=== PATIENT | female | born 1930 | race Caucasian/White ===

== ENCOUNTER 2018-10-07 07:23 | Inpatient (IN) | payer MEDICARE, OTHER ==
[2018-10-07] VITALS (11 sets, daily range): BP systolic 89–108; BP diastolic 46–84
[~2018-10-07] VITALS: Ht 162.6 cm; Wt 63.6 kg
[2018-10-07 08:23] LABS: BASOPHILS % (AUTO) 0.3 % (0-1); EOSINOPHILS # (AUTO) 0.2 X10'3 (0-0.9); EOSINOPHILS % (AUTO) 1.4 % (0-6); HEMATOCRIT 38.7 % (35.0-45.0); HEMOGLOBIN 12.7 g/dl (12.0-16.0); LYMPHOCYTES # (AUTO) 1.6 X10'3 (1.1-4.8); LYMPHOCYTES % (AUTO) 12.4 % (21-51); MEAN CORPUSCULAR HEMOGLOBIN 29.6 PG (27.0-31.0); MEAN CORPUSCULAR HGB CONC 32.9 % (33.0-36.5); MEAN PLATELET VOLUME 10.5 FL (7.4-10.4); MONOCYTES # (AUTO) 1.4 X10'3 (0-0.9); MONOCYTES % (AUTO) 11.3 % (2-12); NEUTROPHILS # (AUTO) 9.5 X10'3 (1.8-7.7); NEUTROPHILS % (AUTO) 74.6 % (42-75); PLATELET COUNT 216 X10'3 (140-440); RED CELL DISTRIBUTION WIDTH 17.7 % (11.5-14.5); WHITE BLOOD COUNT 12.8 X10'3 (4.5-11.0)
[2018-10-07 08:34] LABS: ANISOCYTOSIS 2+; BURR CELLS 1+; LARGE PLATELETS FEW; PLATELET ESTIMATE NORMAL; TARGET CELLS FEW
[2018-10-07] MEDS ORDERED: normal saline 1000ML IV soln IVB ONE ×2 (08:35→10:05)
[2018-10-07 08:38] LABS: ALANINE AMINOTRANSFERASE 18 U/L (12-78); ALBUMIN 3.2 G/DL (3.4-5.0); ALBUMIN/GLOBULIN RATIO 0.8 (1.1-1.5); ALKALINE PHOSPHATASE 46 IU/L (46-116); ANION GAP 17 (8-16); ASPARTATE AMINO TRANSFERASE 25 U/L (10-37); BILIRUBIN,TOTAL 0.8 MG/DL (0.1-1.0); BLOOD UREA NITROGEN 37 MG/DL (7-18); BUN/CREATININE RATIO 24.8 (6.6-38.0); CALCIUM 8.5 MG/DL (8.5-10.1); CHLORIDE 102 MMOL/L (99-107); CREATININE 1.49 MG/DL (0.40-0.90); GLUCOSE 116 MG/DL (70-104); MAGNESIUM 1.7 MG/DL (1.5-2.4); POTASSIUM 3.8 MMOL/L (3.5-5.1); SODIUM 135 MMOL/L (135-145); TOTAL CARBON DIOXIDE 16.4 MMOL/L (24-32); eGFR 33 ML/MIN
[2018-10-07 08:39] LABS: INR 1.2 INR; PARTIAL THROMBOPLASTIN TIME 31 SECONDS (22-32)
[2018-10-07] MEDS ORDERED: normal saline 1000ML IV soln IV ONE (09:00)
[2018-10-07] MEDS ORDERED: levoFLOXACIN-Levaquin 750MG/D5 150 ML IV ONE (09:00)
[2018-10-07] MEDS ORDERED: OMEP40CA37 PO (09:18)
[2018-10-07] MEDS ORDERED: DET2T PO (09:18)
[2018-10-07] MEDS ORDERED: LISI-600 PO (09:18)
[2018-10-07] MEDS ORDERED: MESA800T PO (09:18)
[2018-10-07] MEDS ORDERED: benzonatate 100mg capsule PO ONE (09:25)
[2018-10-07] MEDS ORDERED: diltiazem 5mg/ml 5ml inj. IV ONE ×2 (09:40→10:00)
[2018-10-07] MEDS ORDERED: ondansetron/PF 4mg/2ml inj IV PRN (10:10)
[2018-10-07] MEDS ORDERED: potassium Cl 40MEQ/NS 500ml 500 ML IV PRN ×2 (10:10)
[2018-10-07] MEDS ORDERED: potassium Cl 20 mEq SR tablet PO PRN ×2 (10:10)
[2018-10-07] MEDS ORDERED: HYDROcodone/acetaminophen 5mg/325mg tablet PO PRN (10:10)
[2018-10-07] MEDS ORDERED: acetaminophen 325mg tablet PO PRN ×2 (10:10)
[2018-10-07] MEDS ORDERED: morphine 2 MG/ML inj. syringe IV PRN (10:10)
[2018-10-07] MEDS ORDERED: docusate sod 100mg capsule PO PRN (10:10)
[2018-10-07] MEDS ORDERED: magnesium 4gm in 100ml NS 100 ML IV PRN (10:10)
[2018-10-07] MEDS ORDERED: magnesium 1gm/100ml D5W IVPB 100 ML IV PRN (10:10)
[2018-10-07] MEDS ORDERED: diltiazem-NS 100mg/100ml 100 ML IV SCH (10:10)
[2018-10-07] MEDS ORDERED: magnesium Cl slow-release 64mg tablet PO PRN (10:10)
[2018-10-07] MEDS ORDERED: diltiazem-D5W 125mg/125ml 125 ML IV SCH (10:45)
[2018-10-07] MEDS: normal saline 1000ml 1,000 ML IV SCH ×2 (11:06→18:05)
[2018-10-07] MEDS ORDERED: guaiFENesin/DM/phenylephrine syrup 120ml bottle PO PRN (11:25)
[2018-10-07] MEDS: guaiFENesin/DM 10ml UD oral syrup PO PRN ×2 (11:40→19:58)
[2018-10-07] MEDS: benzonatate 100mg capsule PO PRN (15:49)
[2018-10-07] MEDS: diltiazem-D5W 125mg/125ml 125 ML IV SCH (15:56)
[2018-10-07] MEDS: heparin, porcine 5000 units/ml vial SQ SCH (20:18)
[2018-10-07] MEDS: mesalamine 400 mg capsule.DR PO SCH (20:18)
[2018-10-07] MEDS ORDERED: temazepam 15mg capsule PO PRN (21:00)
[2018-10-08] VITALS (8 sets, daily range): BP systolic 91–108; BP diastolic 64–86
[2018-10-08] MEDS: albuterol 2.5 MG/3 ML nebule NEB SCH ×4 (02:00→21:01)
[2018-10-08 03:42] LABS: CLARITY,URINE SLIGHTLY CLOUDY (Clear); COLOR,URINE AMBER (Yellow); GLUCOSE, URINE NEGATIVE (Neg); KETONES,URINE NEGATIVE (Neg); LEUKOCYTE ESTERASE ,URINE TRACE (Neg); NITRITES, URINE NEGATIVE (Neg); OCCULT BLOOD,URINE NEGATIVE (Neg); PROTEIN,URINE TRACE mg/dl (Neg); UROBILINOGEN,URINE 0.2 E.U/dL (0.2-1.0)
[2018-10-08 03:43] LABS: UA COLLECTION TYPE STRAIGHT CATH
[2018-10-08 03:54] LABS: BACTERIA,URINE 4+ /HPF (Neg); MUCUS STRANDS NONE SEEN /LPF (Neg); RBC,URINE 0-2 /HPF (0-2); SQUAMOUS EPITHELIAL CELL,UR FEW /LPF (FEW); WBC CLUMPS,URINE FEW /HPF (NEGATIVE); WBC,URINE 20-30 /HPF (0-4)
[2018-10-08 05:26] LABS: BASOPHILS % (AUTO) 0.1 % (0-1); EOSINOPHILS # (AUTO) 0.2 X10'3 (0-0.9); EOSINOPHILS % (AUTO) 1.6 % (0-6); HEMATOCRIT 37.6 % (35.0-45.0); HEMOGLOBIN 12.2 g/dl (12.0-16.0); LYMPHOCYTES # (AUTO) 1.8 X10'3 (1.1-4.8); LYMPHOCYTES % (AUTO) 12.9 % (21-51); MEAN CORPUSCULAR HEMOGLOBIN 29.4 PG (27.0-31.0); MEAN CORPUSCULAR HGB CONC 32.4 % (33.0-36.5); MEAN CORPUSCULAR VOLUME 90.7 FL (78-98); MEAN PLATELET VOLUME 11.3 FL (7.4-10.4); MONOCYTES # (AUTO) 1.4 X10'3 (0-0.9); MONOCYTES % (AUTO) 9.7 % (2-12); NEUTROPHILS # (AUTO) 10.7 X10'3 (1.8-7.7); NEUTROPHILS % (AUTO) 75.7 % (42-75); PLATELET COUNT 209 X10'3 (140-440); RED BLOOD COUNT 4.14 X10'6 (4.20-5.60); RED CELL DISTRIBUTION WIDTH 18.5 % (11.5-14.5); WHITE BLOOD COUNT 14.1 X10'3 (4.5-11.0)
[2018-10-08 05:38] LABS: ALBUMIN 2.6 G/DL (3.4-5.0); ANION GAP 14 (8-16); BLOOD UREA NITROGEN 29 MG/DL (7-18); BUN/CREATININE RATIO 25.7 (6.6-38.0); CALCIUM 8.2 MG/DL (8.5-10.1); CHLORIDE 106 MMOL/L (99-107); CREATININE 1.13 MG/DL (0.40-0.90); GLUCOSE 99 MG/DL (70-104); MAGNESIUM 1.5 MG/DL (1.5-2.4); POTASSIUM 4.2 MMOL/L (3.5-5.1); SODIUM 137 MMOL/L (135-145); TOTAL CARBON DIOXIDE 16.7 MMOL/L (24-32); eGFR 46 ML/MIN
[2018-10-08] MEDS: loratadine 10mg tablet PO SCH (07:56)
[2018-10-08] MEDS: methylPREDNISolone sod succ 125mg/2ml vial IV SCH (07:57)
[2018-10-08] MEDS: pantoprazole 40mg Tablet.DR PO SCH (07:57)
[2018-10-08] MEDS ORDERED: CefTRIAXone 2gm/D5W 50ml 50 ML IV SCH (08:00)
[2018-10-08] MEDS: heparin, porcine 5000 units/ml vial SQ SCH (08:02)
[2018-10-08 08:04] LABS: ANISOCYTOSIS 2+; PLATELET ESTIMATE NORMAL; POIKILOCYTOSIS FEW; POLYCHROMASIA 1+
[2018-10-08] MEDS: K and/or MAG REPLACEMENT MC SCH (08:06)
[2018-10-08] MEDS: lisinopril 5mg tablet PO SCH (08:08)
[2018-10-08] MEDS: mesalamine 400 mg capsule.DR PO SCH ×3 (08:09→20:49)
[2018-10-08] MEDS ORDERED: NS IV PRN (08:44)
[2018-10-08] MEDS ORDERED: MAGNESIUM IV PRN (08:44)
[2018-10-08] MEDS: guaiFENesin/DM 10ml UD oral syrup PO PRN ×2 (09:10→20:49)
[2018-10-08] MEDS: diltiazem-D5W 125mg/125ml 125 ML IV SCH (10:24)
[2018-10-08] MEDS: piperacillin/tazo 3.375gm/50ml 50 ML IV SCH ×3 (12:49→20:53)
[2018-10-08] MEDS: vancomycin/NS 1 GM ADD-VANTAGE 250 ML IV SCH (13:38)
[2018-10-08] MEDS ORDERED: digoxin 250mcg/ml 2ml ampule IV ONE (19:00)
[2018-10-08] MEDS: benzonatate 100mg capsule PO PRN (20:48)
[2018-10-08] MEDS: apixaban 5mg tablet PO SCH (20:49)
[2018-10-09] VITALS (7 sets, daily range): BP systolic 94–119; BP diastolic 63–92
[2018-10-09] MEDS: digoxin 250mcg/ml 2ml ampule IV SCH ×2 (01:00→10:46)
[2018-10-09] MEDS: piperacillin/tazo 3.375gm/50ml 50 ML IV SCH ×4 (02:00→20:54)
[2018-10-09] MEDS: benzonatate 100mg capsule PO PRN (04:43)
[2018-10-09] MEDS: guaiFENesin/DM 10ml UD oral syrup PO PRN (04:43)
[2018-10-09 05:23] LABS: ALBUMIN 2.8 G/DL (3.4-5.0); ANION GAP 13 (8-16); BLOOD UREA NITROGEN 33 MG/DL (7-18); BUN/CREATININE RATIO 27.7 (6.6-38.0); CALCIUM 8.5 MG/DL (8.5-10.1); CHLORIDE 103 MMOL/L (99-107); CREATININE 1.19 MG/DL (0.40-0.90); GLUCOSE 171 MG/DL (70-104); MAGNESIUM 1.8 MG/DL (1.5-2.4); POTASSIUM 4.6 MMOL/L (3.5-5.1); SODIUM 135 MMOL/L (135-145); TOTAL CARBON DIOXIDE 18.8 MMOL/L (24-32); eGFR 43 ML/MIN
[2018-10-09 06:09] LABS: BASOPHILS % (AUTO) 0 % (0-1); EOSINOPHILS # (AUTO) 0.2 X10'3 (0-0.9); EOSINOPHILS % (AUTO) 1.8 % (0-6); HEMATOCRIT 40.1 % (35.0-45.0); HEMOGLOBIN 12.9 g/dl (12.0-16.0); LYMPHOCYTES # (AUTO) 0.6 X10'3 (1.1-4.8); MEAN CORPUSCULAR HEMOGLOBIN 29.2 PG (27.0-31.0); MEAN CORPUSCULAR HGB CONC 32.2 % (33.0-36.5); MEAN CORPUSCULAR VOLUME 90.7 FL (78-98); MEAN PLATELET VOLUME 10.8 FL (7.4-10.4); MONOCYTES # (AUTO) 0.3 X10'3 (0-0.9); MONOCYTES % (AUTO) 3.7 % (2-12); NEUTROPHILS # (AUTO) 7.7 X10'3 (1.8-7.7); NEUTROPHILS % (AUTO) 87.5 % (42-75); PLATELET COUNT 216 X10'3 (140-440); RED BLOOD COUNT 4.43 X10'6 (4.20-5.60); RED CELL DISTRIBUTION WIDTH 18.2 % (11.5-14.5); WHITE BLOOD COUNT 8.8 X10'3 (4.5-11.0)
[2018-10-09 06:48] LABS: PLATELET ESTIMATE NORMAL
[2018-10-09 06:49] LABS: ANISOCYTOSIS 2+; BURR CELLS 2+; GIANT PLATELET FEW; LARGE PLATELETS FEW; POLYCHROMASIA FEW
[2018-10-09] MEDS: methylPREDNISolone sod succ 125mg/2ml vial IV SCH (07:50)
[2018-10-09] MEDS: pantoprazole 40mg Tablet.DR PO SCH (07:51)
[2018-10-09] MEDS: lisinopril 5mg tablet PO SCH (07:51)
[2018-10-09] MEDS: apixaban 5mg tablet PO SCH ×2 (07:51→20:54)
[2018-10-09] MEDS: loratadine 10mg tablet PO SCH (07:51)
[2018-10-09] MEDS: K and/or MAG REPLACEMENT MC SCH (07:52)
[2018-10-09] MEDS: mesalamine 400 mg capsule.DR PO SCH ×3 (07:54→20:54)
[2018-10-09] MEDS: albuterol 2.5 MG/3 ML nebule NEB SCH ×3 (08:00→20:40)
[2018-10-09] MEDS: normal saline 1000ml 1,000 ML IV SCH (10:06)
[2018-10-09] MEDS: diltiazem CD 120mg capsule (once-daily) PO SCH (11:31)
[2018-10-09] MEDS: vancomycin/NS 1 GM ADD-VANTAGE 250 ML IV SCH (11:31)
[2018-10-09] MEDS: lactobacillus rhamnosus 10,000 MMU CELLS/CAPSULE PO SCH (20:54)
[2018-10-10 02:00] VITALS: BP 104/70
[2018-10-10] MEDS: albuterol 2.5 MG/3 ML nebule NEB SCH ×2 (02:00→08:50)
[2018-10-10] MEDS: piperacillin/tazo 3.375gm/50ml 50 ML IV SCH ×3 (02:35→13:34)
[2018-10-10 06:00] VITALS: BP 107/65
[2018-10-10 06:44] LABS: BASOPHILS % (AUTO) 0 % (0-1); EOSINOPHILS # (AUTO) 0.3 X10'3 (0-0.9); HEMATOCRIT 38.9 % (35.0-45.0); HEMOGLOBIN 12.7 g/dl (12.0-16.0); LYMPHOCYTES # (AUTO) 1.6 X10'3 (1.1-4.8); LYMPHOCYTES % (AUTO) 10.4 % (21-51); MEAN CORPUSCULAR HEMOGLOBIN 29.6 PG (27.0-31.0); MEAN CORPUSCULAR HGB CONC 32.6 % (33.0-36.5); MEAN CORPUSCULAR VOLUME 90.9 FL (78-98); MEAN PLATELET VOLUME 10.5 FL (7.4-10.4); MONOCYTES # (AUTO) 0.9 X10'3 (0-0.9); NEUTROPHILS # (AUTO) 12.8 X10'3 (1.8-7.7); NEUTROPHILS % (AUTO) 81.6 % (42-75); PLATELET COUNT 281 X10'3 (140-440); RED BLOOD COUNT 4.28 X10'6 (4.20-5.60); RED CELL DISTRIBUTION WIDTH 18.2 % (11.5-14.5); WHITE BLOOD COUNT 15.7 X10'3 (4.5-11.0)
[2018-10-10 06:55] LABS: ALBUMIN 2.6 G/DL (3.4-5.0); ANION GAP 14 (8-16); BLOOD UREA NITROGEN 35 MG/DL (7-18); BUN/CREATININE RATIO 30.7 (6.6-38.0); CALCIUM 8.6 MG/DL (8.5-10.1); CHLORIDE 104 MMOL/L (99-107); CREATININE 1.14 MG/DL (0.40-0.90); GLUCOSE 99 MG/DL (70-104); MAGNESIUM 1.8 MG/DL (1.5-2.4); POTASSIUM 4.7 MMOL/L (3.5-5.1); SODIUM 137 MMOL/L (135-145); TOTAL CARBON DIOXIDE 18.8 MMOL/L (24-32); eGFR 45 ML/MIN
[2018-10-10] MEDS: diltiazem CD 120mg capsule (once-daily) PO SCH (07:48)
[2018-10-10] MEDS: loratadine 10mg tablet PO SCH (07:48)
[2018-10-10] MEDS: digoxin 125mcg (0.125mg) tablet PO SCH (07:48)
[2018-10-10] MEDS: lisinopril 5mg tablet PO SCH (07:48)
[2018-10-10] MEDS: apixaban 5mg tablet PO SCH ×2 (07:48→20:31)
[2018-10-10] MEDS: lactobacillus rhamnosus 10,000 MMU CELLS/CAPSULE PO SCH (07:48)
[2018-10-10] MEDS: mesalamine 400 mg capsule.DR PO SCH ×3 (07:49→20:31)
[2018-10-10] MEDS: pantoprazole 40mg Tablet.DR PO SCH (07:49)
[2018-10-10] MEDS: methylPREDNISolone sod succ 125mg/2ml vial IV SCH ×2 (07:49→09:21)
[2018-10-10] MEDS: K and/or MAG REPLACEMENT MC SCH (07:56)
[2018-10-10 11:00] VITALS: BP 121/65
[2018-10-10] MEDS: vancomycin/NS 1 GM ADD-VANTAGE 250 ML IV SCH (11:39)
[2018-10-10] MEDS: benzonatate 100mg capsule PO PRN (13:31)
[2018-10-10] MEDS: benzocaine/menthol oral lozeng 1 EACH BOX MM PRN ×2 (13:32→17:33)
[2018-10-10] MEDS: ipratropium/albuterol 3ml nebule NEB SCH ×3 (13:56→23:58)
[2018-10-10 15:00] VITALS: BP 129/90
[2018-10-10 18:00] VITALS: BP 116/73
[2018-10-10] MEDS: piperacillin/tazobactam inj. 2.25 GM in normal saline 50ml IV IV SCH (20:31)
[2018-10-10 22:00] VITALS: BP 109/58
[2018-10-11] MEDS: piperacillin/tazobactam inj. 2.25 GM in normal saline 50ml IV IV SCH ×4 (01:56→20:36)
[2018-10-11 02:00] VITALS: BP 107/85
[2018-10-11] MEDS: ipratropium/albuterol 3ml nebule NEB SCH ×6 (03:38→23:22)
[2018-10-11 05:56] LABS: BASOPHILS % (AUTO) 0.4 % (0-1); EOSINOPHILS # (AUTO) 0.2 X10'3 (0-0.9); EOSINOPHILS % (AUTO) 1.4 % (0-6); HEMATOCRIT 39.5 % (35.0-45.0); HEMOGLOBIN 12.9 g/dl (12.0-16.0); LYMPHOCYTES # (AUTO) 0.9 X10'3 (1.1-4.8); LYMPHOCYTES % (AUTO) 7.2 % (21-51); MEAN CORPUSCULAR HEMOGLOBIN 29.4 PG (27.0-31.0); MEAN CORPUSCULAR HGB CONC 32.6 % (33.0-36.5); MEAN CORPUSCULAR VOLUME 90.2 FL (78-98); MEAN PLATELET VOLUME 9.5 FL (7.4-10.4); MONOCYTES # (AUTO) 0.3 X10'3 (0-0.9); MONOCYTES % (AUTO) 2.7 % (2-12); NEUTROPHILS # (AUTO) 10.6 X10'3 (1.8-7.7); NEUTROPHILS % (AUTO) 88.3 % (42-75); PLATELET COUNT 320 X10'3 (140-440); RED BLOOD COUNT 4.38 X10'6 (4.20-5.60); RED CELL DISTRIBUTION WIDTH 18.2 % (11.5-14.5)
[2018-10-11 06:00] VITALS: BP 108/83
[2018-10-11 06:21] LABS: ALBUMIN 2.8 G/DL (3.4-5.0); ANION GAP 14 (8-16); BLOOD UREA NITROGEN 37 MG/DL (7-18); BUN/CREATININE RATIO 26.2 (6.6-38.0); CALCIUM 8.9 MG/DL (8.5-10.1); CHLORIDE 103 MMOL/L (99-107); CREATININE 1.41 MG/DL (0.40-0.90); GLUCOSE 131 MG/DL (70-104); MAGNESIUM 1.8 MG/DL (1.5-2.4); POTASSIUM 4.7 MMOL/L (3.5-5.1); SODIUM 135 MMOL/L (135-145); TOTAL CARBON DIOXIDE 17.8 MMOL/L (24-32); eGFR 35 ML/MIN
[2018-10-11] MEDS: K and/or MAG REPLACEMENT MC SCH (08:00)
[2018-10-11] MEDS: mesalamine 400 mg capsule.DR PO SCH ×3 (08:09→20:29)
[2018-10-11] MEDS: apixaban 5mg tablet PO SCH ×2 (08:10→20:29)
[2018-10-11] MEDS: benzonatate 100mg capsule PO PRN (08:10)
[2018-10-11] MEDS: pantoprazole 40mg Tablet.DR PO SCH (08:10)
[2018-10-11] MEDS: diltiazem CD 120mg capsule (once-daily) PO SCH (08:10)
[2018-10-11] MEDS: digoxin 125mcg (0.125mg) tablet PO SCH (08:10)
[2018-10-11] MEDS: loratadine 10mg tablet PO SCH (08:10)
[2018-10-11] MEDS: lisinopril 5mg tablet PO SCH (08:10)
[2018-10-11] MEDS: methylPREDNISolone sod succ 125mg/2ml vial IV SCH (08:11)
[2018-10-11] MEDS: benzocaine/menthol oral lozeng 1 EACH BOX MM PRN (08:11)
[2018-10-11] MEDS: normal saline 1000ml 1,000 ML IV SCH ×2 (10:06→18:28)
[2018-10-11] MEDS ORDERED: VANCOMYCIN LEVEL IV ONE (10:30)
[2018-10-11 11:00] VITALS: BP 117/68
[2018-10-11] MEDS ORDERED: diltiazem 30mg tablet PO ONE (11:00)
[2018-10-11] MEDS: vancomycin/NS 1 GM ADD-VANTAGE 250 ML IV SCH (11:15)
[2018-10-11 15:00] VITALS: BP 113/76
[2018-10-11 18:00] VITALS: BP 132/72
[2018-10-11] MEDS: furosemide 40mg/4ml inj IV SCH (20:30)
[2018-10-11 22:00] VITALS: BP 119/70
[2018-10-12 02:00] VITALS: BP 111/57
[2018-10-12] MEDS: piperacillin/tazobactam inj. 2.25 GM in normal saline 50ml IV IV SCH ×2 (02:29→08:37)
[2018-10-12] MEDS: ipratropium/albuterol 3ml nebule NEB SCH ×4 (04:14→15:22)
[2018-10-12 06:00] VITALS: BP 116/68
[2018-10-12 06:07] LABS: BASOPHILS % (AUTO) 0.1 % (0-1); EOSINOPHILS # (AUTO) 0.2 X10'3 (0-0.9); EOSINOPHILS % (AUTO) 1.4 % (0-6); HEMATOCRIT 37.7 % (35.0-45.0); HEMOGLOBIN 12.4 g/dl (12.0-16.0); LYMPHOCYTES # (AUTO) 0.9 X10'3 (1.1-4.8); LYMPHOCYTES % (AUTO) 6.5 % (21-51); MEAN CORPUSCULAR HEMOGLOBIN 29.6 PG (27.0-31.0); MEAN CORPUSCULAR HGB CONC 32.9 % (33.0-36.5); MEAN PLATELET VOLUME 9.4 FL (7.4-10.4); MONOCYTES # (AUTO) 0.5 X10'3 (0-0.9); MONOCYTES % (AUTO) 3.9 % (2-12); NEUTROPHILS % (AUTO) 88.1 % (42-75); PLATELET COUNT 317 X10'3 (140-440); RED BLOOD COUNT 4.19 X10'6 (4.20-5.60); RED CELL DISTRIBUTION WIDTH 18.3 % (11.5-14.5); WHITE BLOOD COUNT 13.6 X10'3 (4.5-11.0)
[2018-10-12 06:12] LABS: ALBUMIN 2.9 G/DL (3.4-5.0); ANION GAP 14 (8-16); BLOOD UREA NITROGEN 44 MG/DL (7-18); BUN/CREATININE RATIO 30.3 (6.6-38.0); CALCIUM 8.8 MG/DL (8.5-10.1); CHLORIDE 103 MMOL/L (99-107); CREATININE 1.45 MG/DL (0.40-0.90); GLUCOSE 119 MG/DL (70-104); MAGNESIUM 1.7 MG/DL (1.5-2.4); POTASSIUM 4.4 MMOL/L (3.5-5.1); SODIUM 137 MMOL/L (135-145); TOTAL CARBON DIOXIDE 20.4 MMOL/L (24-32); eGFR 34 ML/MIN
[2018-10-12] MEDS ORDERED: diltiazem CD 180mg cap (once-daily) PO SCH (08:00)
[2018-10-12] MEDS: lisinopril 5mg tablet PO SCH (08:17)
[2018-10-12] MEDS: mesalamine 400 mg capsule.DR PO SCH (08:18)
[2018-10-12] MEDS: pantoprazole 40mg Tablet.DR PO SCH (08:18)
[2018-10-12] MEDS: benzocaine/menthol oral lozeng 1 EACH BOX MM PRN (08:19)
[2018-10-12] MEDS: loratadine 10mg tablet PO SCH (08:19)
[2018-10-12] MEDS: apixaban 5mg tablet PO SCH (08:19)
[2018-10-12] MEDS: digoxin 125mcg (0.125mg) tablet PO SCH (08:25)
[2018-10-12] MEDS: furosemide 40mg/4ml inj IV SCH (08:28)
[2018-10-12] MEDS: methylPREDNISolone sod succ 125mg/2ml vial IV SCH (08:29)
[2018-10-12 15:00] VITALS: BP 121/71
== END 2018-10-12 16:11 | DRG 871 ==
LOC: ER 07:23 → ED HOLD 10:06 → EDBEDREQ 11:36 → PCU 3S 12:10 → CMPBEDREQ 10-10 19:46
PROVIDERS: ADMIT Internal Medicine; ATTEND Family Medicine
DX: A41.9 Sepsis, unspecified organism (principal); J69.0 Pneumonitis due to inhalation of food and vomit; I50.23 Acute on chronic systolic (congestive) heart failure; N39.0 Urinary tract infection, site not specified; I13.0 Hypertensive heart and chronic kidney disease with heart failure and stage 1 through stage 4 chronic kidney disease, or unspecified chronic kidney disease; J44.1 Chronic obstructive pulmonary disease with (acute) exacerbation; K51.90 Ulcerative colitis, unspecified, without complications; K44.9 Diaphragmatic hernia without obstruction or gangrene; N18.3 Chronic kidney disease, stage 3 (moderate); I25.10 Atherosclerotic heart disease of native coronary artery without angina pectoris; I48.91 Unspecified atrial fibrillation; K21.9 Gastro-esophageal reflux disease without esophagitis; Z66 Do not resuscitate; Z99.81 Dependence on supplemental oxygen; Z79.899 Other long term (current) drug therapy; Z87.891 Personal history of nicotine dependence
CPT/HCPCS: 36415; 71045; 71250; 80048; 80053; 80162; 80202; 81001; 83605; 83735; 84145; 85025; 85610; 85730; 87040; 87070; 87077; 87088; 87502; 87503; 93005; 93306; 94640; 94760; 96365; 96375; 97116; 97162; 97530; 99291; G0378; J0696; J1160; J1644; J1940; J1956; J2543; J2930; J3370; J3490; J7030

== ENCOUNTER 2018-10-27 22:21 | Emergency (ER) | payer MEDICARE, OTHER ==
[~2018-10-27] VITALS: Ht 162.6 cm; Wt 62.0 kg
[~2018-10-27 22:21] MED LIST: DET2T PO; LISI-600 PO; MESA800T PO; OMEP40CA37 PO
[2018-10-27 23:30] LABS: BASOPHILS # (AUTO) 0.1 X10'3 (0-0.2); BASOPHILS % (AUTO) 0.8 % (0-1); EOSINOPHILS # (AUTO) 0.2 X10'3 (0-0.9); EOSINOPHILS % (AUTO) 2.2 % (0-6); HEMATOCRIT 39.6 % (35.0-45.0); HEMOGLOBIN 12.8 g/dl (12.0-16.0); LYMPHOCYTES # (AUTO) 1.9 X10'3 (1.1-4.8); LYMPHOCYTES % (AUTO) 24.1 % (21-51); MEAN CORPUSCULAR HEMOGLOBIN 29.6 PG (27.0-31.0); MEAN CORPUSCULAR HGB CONC 32.4 % (33.0-36.5); MEAN CORPUSCULAR VOLUME 91.5 FL (78-98); MEAN PLATELET VOLUME 10.8 FL (7.4-10.4); MONOCYTES # (AUTO) 0.8 X10'3 (0-0.9); MONOCYTES % (AUTO) 10.6 % (2-12); NEUTROPHILS # (AUTO) 4.9 X10'3 (1.8-7.7); NEUTROPHILS % (AUTO) 62.3 % (42-75); PLATELET COUNT 132 X10'3 (140-440); RED BLOOD COUNT 4.33 X10'6 (4.20-5.60); RED CELL DISTRIBUTION WIDTH 17.6 % (11.5-14.5); WHITE BLOOD COUNT 7.8 X10'3 (4.5-11.0)
[2018-10-27 23:44] LABS: ALANINE AMINOTRANSFERASE 21 U/L (12-78); ALBUMIN 3.1 G/DL (3.4-5.0); ALKALINE PHOSPHATASE 60 IU/L (46-116); ANION GAP 10 (8-16); ASPARTATE AMINO TRANSFERASE 24 U/L (10-37); BILIRUBIN,TOTAL 0.5 MG/DL (0.1-1.0); BLOOD UREA NITROGEN 21 MG/DL (7-18); BUN/CREATININE RATIO 17.6 (6.6-38.0); CALCIUM 8.4 MG/DL (8.5-10.1); CHLORIDE 102 MMOL/L (99-107); CREATININE 1.19 MG/DL (0.40-0.90); GLUCOSE 117 MG/DL (70-104); POTASSIUM 4.1 MMOL/L (3.5-5.1); SODIUM 141 MMOL/L (135-145); TOTAL CARBON DIOXIDE 28.7 MMOL/L (24-32); TOTAL PROTEIN 6.2 G/DL (6.4-8.2); eGFR 43 ML/MIN
[2018-10-27 23:46] LABS: INR 1.3 INR; PARTIAL THROMBOPLASTIN TIME 30 SECONDS (22-32); PROTHROMBIN TIME 12.6 SECONDS (9.0-12.0)
[2018-10-28] MEDS ORDERED: POTA10TA19 PO (01:24)
[2018-10-28] MEDS ORDERED: FURO-150 PO (01:24)
[2018-10-28] MEDS ORDERED: LORA10TA7 PO (01:24)
[2018-10-28] MEDS ORDERED: DIGO125T PO (01:24)
[2018-10-28] MEDS ORDERED: APIX5TAB3 PO (01:24)
[2018-10-28] MEDS ORDERED: CARV-50 PO (01:24)
[2018-10-28 01:27] VITALS: BP 121/53
== END 2018-10-28 01:31 | disposition home or self-care (01) ==
LOC: ER 22:22
DX: R79.9 Abnormal finding of blood chemistry, unspecified (principal); I48.91 Unspecified atrial fibrillation; J44.9 Chronic obstructive pulmonary disease, unspecified; Z79.899 Other long term (current) drug therapy
CPT/HCPCS: 36415; 80053; 80162; 84484; 85025; 85610; 85730; 93005; 99284

== ENCOUNTER 2018-12-05 08:57 | Emergency (ER) | payer MEDICARE, OTHER ==
[~2018-12-05] VITALS: Ht 162.6 cm; Wt 60.8 kg
[~2018-12-05 08:57] MED LIST changes: +APIX5TAB3 PO; +CARV-50 PO; +DIGO125T PO; +FURO-150 PO; -LISI-600 PO; +LORA10TA7 PO; -MESA800T PO; +POTA10TA19 PO
[2018-12-05] MEDS ORDERED: traMADol 50MG tablet PO ONE (09:20)
[2018-12-05] MEDS ORDERED: diazepam 5mg tablet PO ONE (09:20)
[2018-12-05] MEDS ORDERED: CYCL-1 PO (09:36)
[2018-12-05 10:04] VITALS: BP 109/78
== END 2018-12-05 10:05 | disposition home or self-care (01) ==
LOC: ER 08:58
DX: S16.1XXA Strain of muscle, fascia and tendon at neck level, initial encounter (principal); I48.91 Unspecified atrial fibrillation; J44.9 Chronic obstructive pulmonary disease, unspecified; Z79.01 Long term (current) use of anticoagulants; Z79.899 Other long term (current) drug therapy; X58.XXXA Exposure to other specified factors, initial encounter; Y93.89 Activity, other specified; Y92.89 Other specified places as the place of occurrence of the external cause; Y99.8 Other external cause status
CPT/HCPCS: 72040; 99283

== ENCOUNTER 2019-03-25 06:25 | Emergency (ER) | payer MEDICARE, OTHER ==
[~2019-03-25] VITALS: Ht 162.6 cm; Wt 46.8 kg
[~2019-03-25 06:25] MED LIST changes: +CYCL-1 PO
[2019-03-25] MEDS ORDERED: predniSONE 20 mg tablet PO SCH (06:45)
[2019-03-25] MEDS ORDERED: HYDROcodone/acetaminophen 10/325mg tab PO ONE (06:45)
[2019-03-25] MEDS ORDERED: predniSONE 20 mg tablet PO ONE (06:45)
[2019-03-25] MEDS ORDERED: HYDR-4383 PO (07:17)
[2019-03-25] MEDS ORDERED: PRED20TA PO (07:17)
[2019-03-25 07:23] VITALS: BP 93/51
== END 2019-03-25 07:24 | disposition home or self-care (01) ==
LOC: ER 06:26
DX: M25.531 Pain in right wrist (principal); R20.2 Paresthesia of skin; I48.91 Unspecified atrial fibrillation; I50.9 Heart failure, unspecified; J44.9 Chronic obstructive pulmonary disease, unspecified; Z79.01 Long term (current) use of anticoagulants; Z79.899 Other long term (current) drug therapy
CPT/HCPCS: 73110; 99283; J7512

== ENCOUNTER 2019-04-17 09:12 | Emergency (ER) | payer MEDICARE, OTHER ==
[~2019-04-17] VITALS: Ht 162.6 cm; Wt 61.4 kg
[~2019-04-17 09:12] MED LIST changes: +HYDR-4383 PO; +PRED20TA PO
[2019-04-17 09:21] VITALS: BP 116/71
[2019-04-17] MEDS ORDERED: HYDROcodone/acetaminophen 10/325mg tab PO ONE (09:35)
[2019-04-17] MEDS ORDERED: HYDR-4353 PO (10:14)
== END 2019-04-17 10:24 | disposition home or self-care (01) ==
LOC: ER 09:13
DX: M51.36 Other intervertebral disc degeneration, lumbar region (principal); M54.5 Low back pain; G89.29 Other chronic pain; I48.91 Unspecified atrial fibrillation; I50.9 Heart failure, unspecified; J44.9 Chronic obstructive pulmonary disease, unspecified; Z79.899 Other long term (current) drug therapy
CPT/HCPCS: 72100; 99283

== ENCOUNTER 2019-08-23 16:30 | Inpatient (IN) | payer MEDICARE, OTHER ==
[~2019-08-23] VITALS: Ht 162.6 cm; Wt 56.7 kg
[~2019-08-23 16:30] MED LIST changes: +BARIUM SULFATE 340 ML SUSP.RECON***PROCEDURE AREA ONLY**DONT ENTER PO ONE; +OMEP40CA13 PO; -OMEP40CA37 PO; -PRED20TA PO
[2019-08-23] MEDS ORDERED: ipratropium/albuterol 3ml nebule NEB ONE ×2 (17:15→18:40)
[2019-08-23] MEDS ORDERED: methylPREDNISolone sod succ 125mg/2ml vial IV ONE (17:15)
[2019-08-23 17:29] LABS: BASOPHILS # (AUTO) 0.1 X10'3 (0-0.2); BASOPHILS % (AUTO) 0.6 % (0-1); EOSINOPHILS # (AUTO) 0.1 X10'3 (0-0.9); EOSINOPHILS % (AUTO) 0.5 % (0-6); HEMATOCRIT 39.6 % (35.0-45.0); LYMPHOCYTES % (AUTO) 16.3 % (21-51); MEAN CORPUSCULAR HEMOGLOBIN 27.8 PG (27.0-31.0); MEAN CORPUSCULAR HGB CONC 32.9 g/dL (33.0-36.5); MEAN CORPUSCULAR VOLUME 84.6 FL (78-98); MEAN PLATELET VOLUME 9.4 FL (7.4-10.4); MONOCYTES % (AUTO) 16.6 % (2-12); NEUTROPHILS # (AUTO) 8.1 X10'3 (1.8-7.7); PLATELET COUNT 191 X10'3 (140-440); RED BLOOD COUNT 4.68 X10'6 (4.20-5.60); RED CELL DISTRIBUTION WIDTH 16.1 % (11.5-14.5); WHITE BLOOD COUNT 12.2 X10'3 (4.5-11.0)
[2019-08-23 17:38] LABS: PARTIAL THROMBOPLASTIN TIME 35 SECONDS (22-32)
[2019-08-23 17:42] LABS: ALANINE AMINOTRANSFERASE 16 U/L (12-78); ALBUMIN 3.3 G/DL (3.4-5.0); ALBUMIN/GLOBULIN RATIO 0.8 (1.1-1.5); ALKALINE PHOSPHATASE 55 IU/L (46-116); ANION GAP 12 (8-16); ASPARTATE AMINO TRANSFERASE 15 U/L (10-37); BILIRUBIN,TOTAL 0.8 MG/DL (0.1-1.0); BLOOD UREA NITROGEN 35 MG/DL (7-18); BUN/CREATININE RATIO 29.4 (6.6-38.0); CALCIUM 8.5 MG/DL (8.5-10.1); CHLORIDE 100 MMOL/L (99-107); CREATININE 1.19 MG/DL (0.40-0.90); GLUCOSE 102 MG/DL (70-104); MAGNESIUM 1.6 MG/DL (1.5-2.4); POTASSIUM 3.7 MMOL/L (3.5-5.1); SODIUM 137 MMOL/L (135-145); TOTAL CARBON DIOXIDE 24.9 MMOL/L (24-32); TOTAL PROTEIN 7.4 G/DL (6.4-8.2); eGFR 43 ML/MIN
[2019-08-23] MEDS ORDERED: CefTRIAXone 2gm/D5W 50ml 50 ML IV ONE (18:00)
[2019-08-23 18:13] LABS: ANISOCYTOSIS 1+; LARGE PLATELETS FEW; PLATELET ESTIMATE NORMAL
[2019-08-23] MEDS ORDERED: APIX2.5T PO (19:24)
[2019-08-23] MEDS ORDERED: ACET-2119 PO (19:29)
[2019-08-23] MEDS ORDERED: ondansetron/PF 4mg/2ml inj IV PRN (19:30)
[2019-08-23] MEDS ORDERED: magnesium hydroxide 30ml (MOM) UD suspension PO PRN (19:30)
[2019-08-23] MEDS ORDERED: mag hydrox/Alum hydrox/simeth 30ml oral suspension PO PRN (19:30)
[2019-08-23] MEDS ORDERED: acetaminophen 325mg tablet PO PRN (19:30)
[2019-08-23] MEDS ORDERED: MESA800T PO (19:31)
[2019-08-23] MEDS ORDERED: ATOR20TA PO (19:42)
--- NOTE | 2019-08-23 19:57 | NUR ---
OBTAINED COMODE FOR PT, COLLECTED URINE ON PT, DISCONNECTED IV FROM ABX, GAVE WARM BLANKET, PT STABLE
[2019-08-23 19:59] LABS: CLARITY,URINE CLOUDY (Clear); COLOR,URINE AMBER (Yellow); UA COLLECTION TYPE CLN CATCH MIDSTREAM
[2019-08-23 20:00] LABS: GLUCOSE, URINE NEGATIVE (Neg); KETONES,URINE NEGATIVE (Neg); LEUKOCYTE ESTERASE ,URINE LARGE (Neg); NITRITES, URINE NEGATIVE (Neg); OCCULT BLOOD,URINE LARGE (Neg); PH,URINE 5.5 (4.8-8.0); PROTEIN,URINE TRACE mg/dl (Neg)
[2019-08-23 20:06] LABS: BACTERIA,URINE 4+ /HPF (Neg); MUCUS STRANDS NONE SEEN /LPF (Neg); RBC,URINE 0-2 /HPF (0-2); SQUAMOUS EPITHELIAL CELL,UR MODERATE /LPF (FEW)
[2019-08-23 20:07] LABS: RENAL CELLS, URINE FEW /HPF
[2019-08-23] MEDS: carVEDilol 12.5mg tablet PO SCH (21:09)
--- NOTE | 2019-08-23 21:30 | NUR ---
Pt arrived on unit. Helped to bed. DART done. 2 RN skin check completed. VS taken. Pt is stable.
[2019-08-23 21:56] VITALS: BP 114/68
[2019-08-23 22:00] VITALS: BP 116/61
--- NOTE | 2019-08-23 22:00 | NUR ---
Pt stated she uses 2L O2 at home while she sleeps. When her VS were taken at 2200, her O2 sat was 97 on 2L; the O2 was then turned down to 1L. Will continue to monitor.
[2019-08-23] MEDS: apixaban 2.5mg tablet PO SCH (22:08)
[2019-08-24 02:00] VITALS: BP 115/66
[2019-08-24 06:00] VITALS: BP 114/57
--- NOTE | 2019-08-24 06:00 | NUR ---
Patient in room PCU 3018. I have received report from Rosalba MEJIA and had the opportunity to ask questions and assume patient care.
[2019-08-24 06:11] LABS: BASOPHILS % (AUTO) 0.2 % (0-1); EOSINOPHILS % (AUTO) 0 % (0-6); HEMATOCRIT 37.2 % (35.0-45.0); HEMOGLOBIN 12.5 g/dl (12.0-16.0); LYMPHOCYTES # (AUTO) 1.2 X10'3 (1.1-4.8); LYMPHOCYTES % (AUTO) 11.8 % (21-51); MEAN CORPUSCULAR HEMOGLOBIN 28.1 PG (27.0-31.0); MEAN CORPUSCULAR HGB CONC 33.5 g/dL (33.0-36.5); MEAN PLATELET VOLUME 9.4 FL (7.4-10.4); MONOCYTES # (AUTO) 0.2 X10'3 (0-0.9); MONOCYTES % (AUTO) 1.9 % (2-12); NEUTROPHILS # (AUTO) 8.6 X10'3 (1.8-7.7); NEUTROPHILS % (AUTO) 86.1 % (42-75); PLATELET COUNT 177 X10'3 (140-440); RED BLOOD COUNT 4.43 X10'6 (4.20-5.60); RED CELL DISTRIBUTION WIDTH 16.6 % (11.5-14.5)
--- NOTE | 2019-08-24 06:29 | NUR ---
Problems reprioritized. Patient report given, questions answered & plan of care reviewed with JACKIE Akbar.
[2019-08-24 06:52] LABS: ALANINE AMINOTRANSFERASE 15 U/L (12-78); ALBUMIN 3.1 G/DL (3.4-5.0); ALBUMIN/GLOBULIN RATIO 0.8 (1.1-1.5); ALKALINE PHOSPHATASE 55 IU/L (46-116); ANION GAP 14 (8-16); ASPARTATE AMINO TRANSFERASE 13 U/L (10-37); BILIRUBIN,TOTAL 0.5 MG/DL (0.1-1.0); BLOOD UREA NITROGEN 39 MG/DL (7-18); BUN/CREATININE RATIO 33.3 (6.6-38.0); CALCIUM 8.3 MG/DL (8.5-10.1); CHLORIDE 103 MMOL/L (99-107); CREATININE 1.17 MG/DL (0.40-0.90); GLUCOSE 139 MG/DL (70-104); POTASSIUM 3.9 MMOL/L (3.5-5.1); SODIUM 139 MMOL/L (135-145); TOTAL CARBON DIOXIDE 22.2 MMOL/L (24-32); TOTAL PROTEIN 7.2 G/DL (6.4-8.2); eGFR 44 ML/MIN
[2019-08-24] MEDS ORDERED: FLU VACC QS2019-20 36MOS UP/PF 60 MCG/0.5 ML SYRINGE IMVAC ONE (08:00)
[2019-08-24] MEDS ORDERED: azithromycin/NS 500mg/250ml 250 ML IV SCH (08:10)
[2019-08-24] MEDS: carVEDilol 12.5mg tablet PO SCH ×2 (08:56→20:56)
[2019-08-24] MEDS: apixaban 2.5mg tablet PO SCH ×2 (08:57→20:56)
[2019-08-24] MEDS: potassium chloride 10mEq ER tablet PO SCH (08:58)
[2019-08-24] MEDS: furosemide 20MG tablet PO SCH (08:58)
[2019-08-24] MEDS: atorvastatin 20mg tablet PO SCH (08:59)
[2019-08-24] MEDS: CefTRIAXone/D5W-Rocephin 1gm 50 ML IV SCH (08:59)
[2019-08-24] MEDS: zinc sulfate 220mg capsule PO SCH (08:59)
[2019-08-24] MEDS ORDERED: pneumococcal 23-VAL P-sac vacc 25 mcg/0.5ml vial IMVAC ONE (09:05)
--- NOTE | 2019-08-24 10:29 | NUR ---
Student Medication Administration: For this medication-pass time frame, all medication were reviewed, dispensed, administered and documented per hospital policy by Paul COOK [facility].
[2019-08-24] MEDS: montelukast 10mg tablet PO SCH (10:51)
[2019-08-24 11:00] VITALS: BP 115/66
[2019-08-24] MEDS: azelastine Nasal Spray bottle NS SCH ×2 (11:05→21:37)
[2019-08-24] MEDS: salt irrigation nasal spray 45 ML SPRAY NS SCH ×2 (11:05→21:37)
[2019-08-24] MEDS: lactose-reduced food (Ensure Enlive) - 237ml bottle PO SCH ×2 (13:00→18:00)
[2019-08-24 15:00] VITALS: BP 128/65
--- NOTE | 2019-08-24 17:00 | NUR ---
Second page to Speech Therapy group page re: Room 8850P Whitley Nuñez, pt states she can't swallow solid food, ETA on ST eval please?
--- NOTE | 2019-08-24 18:00 | NUR ---
Patient in room PCU 3018. I have received report from Vy MEJIA and had the opportunity to ask questions and assume patient care.
--- NOTE | 2019-08-24 18:00 | NUR ---
Spoke with bedside RN regarding pending speech eval, patient reports to tolerated softer foods like applesauce, pudding, and the Ensure with meals. No reported issues with thin liquids. D/w dietary to send mechanical soft food with ground meats pending the speech eval. Addendum: 08/24/19 at [address] Amended: Links added.
[2019-08-24 19:00] VITALS: BP 114/72
[2019-08-24] MEDS: budesonide 0.5mg/2ml UD nebule IH SCH (19:22)
[2019-08-24] MEDS: lactobacillus rhamnosus 10,000 MMU CELLS/CAPSULE PO SCH (20:56)
[2019-08-24 23:00] VITALS: BP 114/58
[2019-08-25 03:00] VITALS: BP 110/48
[2019-08-25 06:00] VITALS: BP 103/48
--- NOTE | 2019-08-25 06:00 | NUR ---
Patient in room PCU 3018. I have received report from Vy MEJIA and had the opportunity to ask questions and assume patient care.
[2019-08-25 06:14] LABS: BASOPHILS % (AUTO) 0.2 % (0-1); EOSINOPHILS % (AUTO) 0 % (0-6); HEMATOCRIT 35.6 % (35.0-45.0); HEMOGLOBIN 11.7 g/dl (12.0-16.0); LYMPHOCYTES # (AUTO) 1.5 X10'3 (1.1-4.8); LYMPHOCYTES % (AUTO) 11.1 % (21-51); MEAN CORPUSCULAR HEMOGLOBIN 27.9 PG (27.0-31.0); MEAN CORPUSCULAR HGB CONC 32.8 g/dL (33.0-36.5); MEAN CORPUSCULAR VOLUME 85.1 FL (78-98); MEAN PLATELET VOLUME 9.7 FL (7.4-10.4); MONOCYTES # (AUTO) 1.1 X10'3 (0-0.9); MONOCYTES % (AUTO) 8.2 % (2-12); NEUTROPHILS # (AUTO) 10.9 X10'3 (1.8-7.7); NEUTROPHILS % (AUTO) 80.5 % (42-75); PLATELET COUNT 202 X10'3 (140-440); RED BLOOD COUNT 4.19 X10'6 (4.20-5.60); RED CELL DISTRIBUTION WIDTH 16.8 % (11.5-14.5); WHITE BLOOD COUNT 13.6 X10'3 (4.5-11.0)
[2019-08-25 07:18] LABS: ALANINE AMINOTRANSFERASE 22 U/L (12-78); ALBUMIN/GLOBULIN RATIO 0.8 (1.1-1.5); ALKALINE PHOSPHATASE 54 IU/L (46-116); ANION GAP 14 (8-16); ASPARTATE AMINO TRANSFERASE 23 U/L (10-37); BILIRUBIN,TOTAL 0.3 MG/DL (0.1-1.0); BLOOD UREA NITROGEN 48 MG/DL (7-18); BUN/CREATININE RATIO 41.4 (6.6-38.0); CALCIUM 8.7 MG/DL (8.5-10.1); CHLORIDE 104 MMOL/L (99-107); CREATININE 1.16 MG/DL (0.40-0.90); GLUCOSE 140 MG/DL (70-104); POTASSIUM 3.6 MMOL/L (3.5-5.1); SODIUM 140 MMOL/L (135-145); TOTAL CARBON DIOXIDE 22.2 MMOL/L (24-32); eGFR 44 ML/MIN
[2019-08-25] MEDS: CefTRIAXone/D5W-Rocephin 1gm 50 ML IV SCH (07:56)
[2019-08-25] MEDS ORDERED: azithromycin 250mg tablet PO SCH (08:00)
[2019-08-25] MEDS: montelukast 10mg tablet PO SCH (08:04)
[2019-08-25] MEDS: potassium chloride 10mEq ER tablet PO SCH (08:04)
[2019-08-25] MEDS: zinc sulfate 220mg capsule PO SCH (08:04)
[2019-08-25] MEDS: atorvastatin 20mg tablet PO SCH (08:04)
[2019-08-25] MEDS: furosemide 20MG tablet PO SCH (08:04)
[2019-08-25] MEDS: apixaban 2.5mg tablet PO SCH ×2 (08:05→20:00)
[2019-08-25] MEDS: lactobacillus rhamnosus 10,000 MMU CELLS/CAPSULE PO SCH ×2 (08:06→20:00)
[2019-08-25] MEDS: azelastine Nasal Spray bottle NS SCH ×2 (08:06→20:00)
[2019-08-25] MEDS: salt irrigation nasal spray 45 ML SPRAY NS SCH ×2 (08:06→20:00)
[2019-08-25] MEDS: carVEDilol 12.5mg tablet PO SCH ×2 (08:08→20:00)
[2019-08-25] MEDS: lactose-reduced food (Ensure Enlive) - 237ml bottle PO SCH ×3 (08:13→18:00)
[2019-08-25] MEDS: budesonide 0.5mg/2ml UD nebule IH SCH ×2 (08:37→19:09)
[2019-08-25 11:00] VITALS: BP 132/73
--- NOTE | 2019-08-25 12:13 | NUR ---
Spoke with bedside RN regarding pending speech eval, it was performed this morning by who recommends pureed foods, thin liquids. This RD saw patient at bedside and provided written handout for recommendation for pureed foods, sample menu, and foods to avoid. Patient hard of hearing, she has a and family that will assist her at home. Gave written contact information if they have any questions in the future. Addendum: 08/25/19 at [address] Amended: Links added.
[2019-08-25 15:00] VITALS: BP 123/78
[2019-08-25] MEDS: normal saline 1000ml 1,000 ML IV SCH (16:15)
[2019-08-25 18:00] VITALS: BP 112/79
--- NOTE | 2019-08-25 18:30 | NUR ---
Problems reprioritized. Patient report given, questions answered & plan of care reviewed with Albina MEJIA.
[2019-08-25 23:00] VITALS: BP 125/60
[2019-08-26] MEDS: cefepime inj. 1 GM in normal saline 100ml IV soln 100 ML IV SCH ×3 (00:16→16:50)
[2019-08-26] MEDS: normal saline 1000ml 1,000 ML IV SCH (02:15)
[2019-08-26 03:00] VITALS: BP 117/62
[2019-08-26 05:27] LABS: ALANINE AMINOTRANSFERASE 28 U/L (12-78); ALBUMIN 2.8 G/DL (3.4-5.0); ALBUMIN/GLOBULIN RATIO 0.7 (1.1-1.5); ALKALINE PHOSPHATASE 54 IU/L (46-116); ANION GAP 11 (8-16); ASPARTATE AMINO TRANSFERASE 22 U/L (10-37); BILIRUBIN,TOTAL 0.4 MG/DL (0.1-1.0); BLOOD UREA NITROGEN 38 MG/DL (7-18); BUN/CREATININE RATIO 39.2 (6.6-38.0); CALCIUM 8.2 MG/DL (8.5-10.1); CHLORIDE 106 MMOL/L (99-107); CREATININE 0.97 MG/DL (0.40-0.90); GLUCOSE 95 MG/DL (70-104); POTASSIUM 3.7 MMOL/L (3.5-5.1); SODIUM 141 MMOL/L (135-145); TOTAL CARBON DIOXIDE 24.5 MMOL/L (24-32); TOTAL PROTEIN 6.6 G/DL (6.4-8.2); eGFR 54 ML/MIN
[2019-08-26 05:39] LABS: BASOPHILS % (AUTO) 0.3 % (0-1); EOSINOPHILS % (AUTO) 0.3 % (0-6); HEMOGLOBIN 11.7 g/dl (12.0-16.0); LYMPHOCYTES % (AUTO) 16.2 % (21-51); MEAN CORPUSCULAR HEMOGLOBIN 28.4 PG (27.0-31.0); MEAN CORPUSCULAR HGB CONC 33.3 g/dL (33.0-36.5); MEAN CORPUSCULAR VOLUME 85.2 FL (78-98); MEAN PLATELET VOLUME 9.8 FL (7.4-10.4); MONOCYTES # (AUTO) 1.4 X10'3 (0-0.9); MONOCYTES % (AUTO) 11.7 % (2-12); NEUTROPHILS # (AUTO) 8.6 X10'3 (1.8-7.7); NEUTROPHILS % (AUTO) 71.5 % (42-75); PLATELET COUNT 222 X10'3 (140-440); RED BLOOD COUNT 4.11 X10'6 (4.20-5.60); RED CELL DISTRIBUTION WIDTH 16.3 % (11.5-14.5); WHITE BLOOD COUNT 12.1 X10'3 (4.5-11.0)
[2019-08-26 06:00] VITALS: BP 109/62
--- NOTE | 2019-08-26 06:00 | NUR ---
Patient in room PCU 3018. I have received report from Albina MEJIA and had the opportunity to ask questions and assume patient care.
--- NOTE | 2019-08-26 07:46 | NUR ---
Page to Dr Thorpe re:Room 4720L Whitley Nuñez, due to Hx of CHF do you want to reduce rate of NS IV? Per coal weigher report Surgeon came in but I don't see any notes, NG tube was removed by night nurse. Naomie [id number] Addendum: 08/26/19 at 0748 by Naomie Hayden RN Return call from Dr Thorpe, orders to keep NPO and reduce IV NS rate to 80 ml/hr
[2019-08-26] MEDS ORDERED: normal saline 1000ml 1,000 ML IV SCH (07:50)
[2019-08-26] MEDS: budesonide 0.5mg/2ml UD nebule IH SCH ×2 (07:56→20:12)
[2019-08-26] MEDS: ipratropium/albuterol 3ml nebule NEB PRN (08:00)
[2019-08-26] MEDS: lactose-reduced food (Ensure Enlive) - 237ml bottle PO SCH ×3 (08:00→18:00)
[2019-08-26] MEDS: azelastine Nasal Spray bottle NS SCH ×2 (08:41→20:08)
[2019-08-26] MEDS: salt irrigation nasal spray 45 ML SPRAY NS SCH ×2 (08:41→20:08)
[2019-08-26] MEDS: carVEDilol 12.5mg tablet PO SCH ×2 (10:00→20:00)
[2019-08-26] MEDS: montelukast 10mg tablet PO SCH (10:01)
[2019-08-26] MEDS: lactobacillus rhamnosus 10,000 MMU CELLS/CAPSULE PO SCH ×2 (10:01→20:08)
[2019-08-26] MEDS: furosemide 20 MG/2 ML vial IV SCH (10:02)
[2019-08-26] MEDS: Potassium Cl inj 20 MEQ in normal saline 1000ml 990 ML IV SCH (10:03)
[2019-08-26 11:00] VITALS: BP 113/47
[2019-08-26] MEDS ORDERED: nitroGLYCERIN 0.4mg SUBLingual tab SL PRN (12:55)
[2019-08-26] MEDS ORDERED: metoprolol tartrate 1mg/ml inj IV PRN (12:55)
[2019-08-26] MEDS ORDERED: aminophylline 250mg/10ml inj. IV PRN (12:55)
[2019-08-26] MEDS ORDERED: regadenoson 0.4mg/5ml syringe IV ONE (12:55)
[2019-08-26 15:00] VITALS: BP 118/49
--- NOTE | 2019-08-26 15:46 | NUR ---
Page to Dr Thorpe re: Room 8942E Whitley Nuñez, Dr Thomason ordered lexiscan but NM unable to do until tomorrow morning. Can she have some oral fluids? Naomie [id number] Addendum: 08/26/19 at 1552 by Naomie Hayden RN Return call from Dr Thorpe, pt needs to remain NPO until cleared by surgeon. Please do not call any hospitalist for dietary/NPO questions. Refer to surgeon.
[2019-08-26] MEDS: heparin, porcine 5000 units/ml vial SQ SCH (16:38)
[2019-08-26 18:00] VITALS: BP 126/57
--- NOTE | 2019-08-26 18:00 | NUR ---
Problems reprioritized. Patient report given, questions answered & plan of care reviewed with Albina MEJIA.
[2019-08-26 22:00] VITALS: BP 113/52
[2019-08-27] VITALS (11 sets, daily range): BP systolic 102–135; BP diastolic 55–68
[2019-08-27] MEDS: cefepime inj. 1 GM in normal saline 100ml IV soln 100 ML IV SCH ×3 (00:36→16:35)
[2019-08-27] MEDS: heparin, porcine 5000 units/ml vial SQ SCH ×3 (00:38→16:42)
[2019-08-27] MEDS: Potassium Cl inj 20 MEQ in normal saline 1000ml 990 ML IV SCH (04:17)
--- NOTE | 2019-08-27 05:34 | NUR ---
Student documentation: I have reviewed and agree with all interventions, assessments performed and documented by Sydney Addendum: 08/27/19 at 0537 by Albina Hernandez RN done by Saman Grimes
--- NOTE | 2019-08-27 06:38 | NUR ---
Patient in room PCU 3018. I have received report from JACKIE Davison and had the opportunity to ask questions and assume patient care.
[2019-08-27 06:39] LABS: BASOPHILS # (AUTO) 0.1 X10'3 (0-0.2); BASOPHILS % (AUTO) 0.7 % (0-1); EOSINOPHILS # (AUTO) 0.1 X10'3 (0-0.9); EOSINOPHILS % (AUTO) 1.7 % (0-6); HEMATOCRIT 36.2 % (35.0-45.0); HEMOGLOBIN 12.1 g/dl (12.0-16.0); LYMPHOCYTES # (AUTO) 1.9 X10'3 (1.1-4.8); LYMPHOCYTES % (AUTO) 23.1 % (21-51); MEAN CORPUSCULAR HEMOGLOBIN 28.1 PG (27.0-31.0); MEAN CORPUSCULAR HGB CONC 33.3 g/dL (33.0-36.5); MEAN CORPUSCULAR VOLUME 84.2 FL (78-98); MEAN PLATELET VOLUME 9.4 FL (7.4-10.4); MONOCYTES # (AUTO) 1.1 X10'3 (0-0.9); MONOCYTES % (AUTO) 13.5 % (2-12); PLATELET COUNT 236 X10'3 (140-440); RED CELL DISTRIBUTION WIDTH 16.6 % (11.5-14.5); WHITE BLOOD COUNT 8.3 X10'3 (4.5-11.0)
[2019-08-27 06:48] LABS: ALANINE AMINOTRANSFERASE 24 U/L (12-78); ALBUMIN 2.7 G/DL (3.4-5.0); ALBUMIN/GLOBULIN RATIO 0.7 (1.1-1.5); ALKALINE PHOSPHATASE 52 IU/L (46-116); ANION GAP 7 (8-16); ASPARTATE AMINO TRANSFERASE 18 U/L (10-37); BILIRUBIN,TOTAL 0.5 MG/DL (0.1-1.0); BLOOD UREA NITROGEN 26 MG/DL (7-18); BUN/CREATININE RATIO 26.5 (6.6-38.0); CALCIUM 8.2 MG/DL (8.5-10.1); CHLORIDE 107 MMOL/L (99-107); CREATININE 0.98 MG/DL (0.40-0.90); GLUCOSE 88 MG/DL (70-104); POTASSIUM 3.6 MMOL/L (3.5-5.1); SODIUM 141 MMOL/L (135-145); TOTAL CARBON DIOXIDE 26.6 MMOL/L (24-32); TOTAL PROTEIN 6.4 G/DL (6.4-8.2); eGFR 54 ML/MIN
[2019-08-27] MEDS: budesonide 0.5mg/2ml UD nebule IH SCH ×2 (08:00→19:21)
[2019-08-27] MEDS: lactose-reduced food (Ensure Enlive) - 237ml bottle PO SCH ×3 (08:00→18:00)
[2019-08-27] MEDS: lactobacillus rhamnosus 10,000 MMU CELLS/CAPSULE PO SCH ×2 (08:16→20:16)
[2019-08-27] MEDS: montelukast 10mg tablet PO SCH (08:16)
[2019-08-27] MEDS: furosemide 20 MG/2 ML vial IV SCH (10:55)
[2019-08-27] MEDS: carVEDilol 12.5mg tablet PO SCH ×2 (10:55→20:16)
[2019-08-27] MEDS: salt irrigation nasal spray 45 ML SPRAY NS SCH ×2 (11:03→20:16)
[2019-08-27] MEDS: azelastine Nasal Spray bottle NS SCH ×2 (11:03→20:16)
--- NOTE | 2019-08-27 13:52 | NUR ---
Paged Dr. Melvin regarding pts diet status PAGER ID: [phone] MESSAGE: [phone] - Young: Paddy cleared pt off of NPO status and stated 'Dr. Kaur will make decision pertaining to lexiscan'. Can pt continue with full liquid diet until being NPO tonight at midnight? Kindly advise! -Yvonne [phone]
--- NOTE | 2019-08-27 14:36 | NUR ---
Dr. Thomason at bedside. Patient okayed to eat the previously ordered diet from cardiology standpoint, will check with hospitalist. Also per Dr. Thomason request medical records from [facility].
--- NOTE | 2019-08-27 16:41 | NUR ---
I agree with Yvonne MEJIAvisual basic .net developer. Will continue to monitor.
--- NOTE | 2019-08-27 18:08 | NUR ---
Orientee documentation: I have reviewed and agree with interventions, assessments performed and documented by Yvonne MEJIA. [place] Medication Administration: For this medication-pass time frame, medication were reviewed, dispensed, administered and documented per hospital policy by Yvonne MEJIA .
--- NOTE | 2019-08-27 18:20 | NUR ---
Patient in room PCU 3016. I have received report from Millicent MEJIA and Yvonne MEJIA and had the opportunity to ask questions and assume patient care.
--- NOTE | 2019-08-27 23:50 | NUR ---
PAGER ID: [phone] MESSAGE: Bisi JOAQUIN [phone]. Whitley Nuñez 3016B. HR has been sustaining in the 130's. BP 102/56. Takes Coreg 12.5 BID- had last dose @ 2016 Addendum: 08/28/19 at 0026 by Bisi Elizondo RN Dr. Thorpe placed order for 1x dose of Digoxin 250mcg IVP. Medication administered.
[2019-08-27] MEDS ORDERED: digoxin 250mcg/ml 2ml ampule IV ONE (23:55)
[2019-08-28] MEDS: cefepime inj. 1 GM in normal saline 100ml IV soln 100 ML IV SCH ×3 (00:07→16:22)
[2019-08-28] MEDS: heparin, porcine 5000 units/ml vial SQ SCH ×3 (00:08→16:07)
[2019-08-28 02:00] VITALS: BP 118/65
[2019-08-28] MEDS: Potassium Cl inj 20 MEQ in normal saline 1000ml 990 ML IV SCH (04:28)
[2019-08-28 05:23] LABS: ALANINE AMINOTRANSFERASE 21 U/L (12-78); ALBUMIN 2.5 G/DL (3.4-5.0); ALBUMIN/GLOBULIN RATIO 0.7 (1.1-1.5); ALKALINE PHOSPHATASE 48 IU/L (46-116); ANION GAP 8 (8-16); ASPARTATE AMINO TRANSFERASE 14 U/L (10-37); BILIRUBIN,TOTAL 0.5 MG/DL (0.1-1.0); BLOOD UREA NITROGEN 24 MG/DL (7-18); BUN/CREATININE RATIO 26.1 (6.6-38.0); CALCIUM 7.6 MG/DL (8.5-10.1); CHLORIDE 111 MMOL/L (99-107); CREATININE 0.92 MG/DL (0.40-0.90); GLUCOSE 99 MG/DL (70-104); POTASSIUM 4.6 MMOL/L (3.5-5.1); SODIUM 143 MMOL/L (135-145); TOTAL CARBON DIOXIDE 23.8 MMOL/L (24-32); eGFR 58 ML/MIN
[2019-08-28 05:38] LABS: BASOPHILS # (AUTO) 0.1 X10'3 (0-0.2); BASOPHILS % (AUTO) 0.7 % (0-1); EOSINOPHILS # (AUTO) 0.2 X10'3 (0-0.9); EOSINOPHILS % (AUTO) 2.1 % (0-6); HEMATOCRIT 37.8 % (35.0-45.0); HEMOGLOBIN 12.4 g/dl (12.0-16.0); LYMPHOCYTES % (AUTO) 21.5 % (21-51); MEAN CORPUSCULAR HGB CONC 32.7 g/dL (33.0-36.5); MEAN CORPUSCULAR VOLUME 85.6 FL (78-98); MEAN PLATELET VOLUME 9.6 FL (7.4-10.4); MONOCYTES # (AUTO) 0.9 X10'3 (0-0.9); MONOCYTES % (AUTO) 10.2 % (2-12); NEUTROPHILS % (AUTO) 65.5 % (42-75); PLATELET COUNT 239 X10'3 (140-440); RED BLOOD COUNT 4.42 X10'6 (4.20-5.60); RED CELL DISTRIBUTION WIDTH 16.2 % (11.5-14.5); WHITE BLOOD COUNT 9.2 X10'3 (4.5-11.0)
--- NOTE | 2019-08-28 06:25 | NUR ---
Problems reprioritized. Patient report given, questions answered & plan of care reviewed with Jasmin MEJIA.
--- NOTE | 2019-08-28 06:30 | NUR ---
Patient in room PCU 3016. I have received report from JACKIE Leblanc and had the opportunity to ask questions and assume patient care.
[2019-08-28] MEDS: montelukast 10mg tablet PO SCH (09:25)
[2019-08-28] MEDS: lactobacillus rhamnosus 10,000 MMU CELLS/CAPSULE PO SCH ×2 (09:25→20:50)
[2019-08-28] MEDS: carVEDilol 12.5mg tablet PO SCH ×2 (09:25→20:50)
[2019-08-28] MEDS: azelastine Nasal Spray bottle NS SCH ×2 (09:26→20:49)
[2019-08-28] MEDS: salt irrigation nasal spray 45 ML SPRAY NS SCH ×2 (09:27→20:49)
[2019-08-28] MEDS: furosemide 20 MG/2 ML vial IV SCH (09:28)
[2019-08-28] MEDS: budesonide 0.5mg/2ml UD nebule IH SCH ×2 (09:41→20:20)
[2019-08-28] MEDS: ipratropium/albuterol 3ml nebule NEB PRN (09:41)
--- NOTE | 2019-08-28 14:06 | NUR ---
Whitley Nuñez Rm [id number] receiving 20 meq Potassium IV in NS @ 60ml/hr. Potassium level this am 4.6. Do you want to continue? JACKIE Dumont ext [phone] *page to Olegario
--- NOTE | 2019-08-28 15:49 | NUR ---
Initial: Pt admit w/ PNA possibly aspiration related per MD. SP advanced to pureed/thin; currently on full liquids d/w RN and unsure why. PO 0-25% meals this admit w/ 100% only one documented ONS intake. Per RN today surgeon accepted case and possible OR tomorrow for paraesophageal hernia surgery repair. LBM 08/25. New SP BSS pending; will monitor for recs and diet advancement if to OR tomorrow. Rec: 1. advance to pureed/thin per SP recs 2. ensure enlive TIDWM 3. wt per rx Addendum: 08/28/19 at [address] Amended: Links added.
--- NOTE | 2019-08-28 16:16 | NUR ---
Whitley Nuñez Rm [id number] Aflutter with tachycardia JACKIE Dumont ext [phone] + page to Dr Melvin
--- NOTE | 2019-08-28 16:32 | NUR ---
Olegario ordered STAT K and give Coreg early if Aflutter and tachycardia persists
--- NOTE | 2019-08-28 17:54 | NUR ---
Wihtley Nuñez Rm [id number] Spoke with Dr Bird. He will see her outpatient and schedule her surgery at a later date. Julia RN ext [phone] Melvin
[2019-08-28] MEDS: lactose-reduced food (Ensure Enlive) - 237ml bottle PO SCH (18:00)
--- NOTE | 2019-08-28 18:00 | NUR ---
Patient in room PCU 3016. I have received report from Julia MEJIA and had the opportunity to ask questions and assume patient care.
--- NOTE | 2019-08-28 18:36 | NUR ---
Problems reprioritized. Patient report given, questions answered & plan of care reviewed with JACKIE Cueto.
[2019-08-28 19:00] VITALS: BP 106/70
[2019-08-28 23:00] VITALS: BP 106/60
[2019-08-29] MEDS: heparin, porcine 5000 units/ml vial SQ SCH ×2 (00:01→07:57)
[2019-08-29 02:40] VITALS: BP 98/57
[2019-08-29 06:00] VITALS: BP 97/55
--- NOTE | 2019-08-29 06:32 | NUR ---
Problems reprioritized. Patient report given, questions answered & plan of care reviewed with NEW MEJIA.
--- NOTE | 2019-08-29 06:36 | NUR ---
Patient in room PCU 3016. I have received report from Nory MEJIA and had the opportunity to ask questions and assume patient care.
--- NOTE | 2019-08-29 06:48 | NUR ---
Patient in room PCU 3016. I have received report from Nory MEJIA and had the opportunity to ask questions and assume patient care. Patient asleep in bed. In no acute distress.
[2019-08-29] MEDS: budesonide 0.5mg/2ml UD nebule IH SCH (07:14)
[2019-08-29] MEDS: salt irrigation nasal spray 45 ML SPRAY NS SCH (07:56)
[2019-08-29] MEDS: azelastine Nasal Spray bottle NS SCH (07:56)
[2019-08-29] MEDS: cefepime inj. 1 GM in normal saline 100ml IV soln 100 ML IV SCH ×3 (07:56)
[2019-08-29] MEDS: lactobacillus rhamnosus 10,000 MMU CELLS/CAPSULE PO SCH (07:57)
[2019-08-29] MEDS: montelukast 10mg tablet PO SCH (07:57)
[2019-08-29] MEDS: furosemide 20 MG/2 ML vial IV SCH (07:57)
[2019-08-29] MEDS: carVEDilol 12.5mg tablet PO SCH (07:58)
[2019-08-29] MEDS ORDERED: apixaban 2.5mg tablet PO SCH (08:55)
--- NOTE | 2019-08-29 10:30 | NUR ---
Ambulated patient 50 feet with front wheel walker, patient tolerated well.
[2019-08-29] MEDS ORDERED: LEVO500T2 PO (10:57)
[2019-08-29 11:00] VITALS: BP 98/60
--- NOTE | 2019-08-29 13:25 | NUR ---
Patient is stable for discharge per MD orders. All discharge instructions reviewed with patient and , all questions were answered. Follow up appointment was scheduled with Dr Bird for Sep 15, 2019 at 1030, patient aware. New prescriptions called into [facility] [place]. PIV discontinued, cannula intact with no complications. cardiac monitor discontinued, notified technical maintenance technician of patient being discharged. All patients belongings were collected and sent with patient and . picked patient up. Wheeled to lobnurys, accompanied by RN.
--- NOTE | 2019-08-29 13:40 | NUR ---
Orientee documentation: I have reviewed and agree with all interventions, assessments performed and documented by JACKIE Fernandez.
--- NOTE | 2019-08-29 13:40 | NUR ---
Joyceee Medication Administration: For this medication-pass time frame, all medication were reviewed, dispensed, administered and documented per hospital policy by JACKIE Fernandez
[2019-08-30] MEDS ORDERED: FLU VACC QS2019-20 36MOS UP/PF 60 MCG/0.5 ML SYRINGE IMVAC ONE (08:00)
== END 2019-08-29 13:26 | disposition home or self-care (01) | DRG 177 ==
LOC: ER 16:30 → ED HOLD 20:43 → PCU 3S 21:19
PROVIDERS: ADMIT Internal Medicine; ATTEND Family Medicine
PROC: 4A02XM4 Measurement of Cardiac Total Activity, External Approach (ICD-10-PCS; principal; 2019-08-27)
PROC: 3E033HZ Introduction of Radioactive Substance into Peripheral Vein, Percutaneous Approach (ICD-10-PCS; 2019-08-27)
DX: J69.0 Pneumonitis due to inhalation of food and vomit (principal); J96.90 Respiratory failure, unspecified, unspecified whether with hypoxia or hypercapnia; E41 Nutritional marasmus; I13.0 Hypertensive heart and chronic kidney disease with heart failure and stage 1 through stage 4 chronic kidney disease, or unspecified chronic kidney disease; I42.9 Cardiomyopathy, unspecified; I50.42 Chronic combined systolic (congestive) and diastolic (congestive) heart failure; K51.90 Ulcerative colitis, unspecified, without complications; E78.5 Hyperlipidemia, unspecified; I08.1 Rheumatic disorders of both mitral and tricuspid valves; I25.10 Atherosclerotic heart disease of native coronary artery without angina pectoris; J30.9 Allergic rhinitis, unspecified; I48.0 Paroxysmal atrial fibrillation; J44.9 Chronic obstructive pulmonary disease, unspecified; K44.9 Diaphragmatic hernia without obstruction or gangrene; M19.90 Unspecified osteoarthritis, unspecified site; N18.3 Chronic kidney disease, stage 3 (moderate); Z68.21 Body mass index [BMI] 21.0-21.9, adult; Z82.49 Family history of ischemic heart disease and other diseases of the circulatory system; Z85.3 Personal history of malignant neoplasm of breast; Z87.891 Personal history of nicotine dependence; Z90.13 Acquired absence of bilateral breasts and nipples; Z90.710 Acquired absence of both cervix and uterus; Z99.81 Dependence on supplemental oxygen
CPT/HCPCS: 36415; 71045; 74018; 74220; 78452; 80053; 80162; 81001; 83605; 83735; 83880; 84132; 84145; 84443; 85025; 85610; 85730; 87040; 87070; 87077; 87081; 87088; 87186; 92508; 92616; 93005; 93017; 93306; 94640; 94667; 94668; 94760; 96365; 96366; 96375; 99285; A9500; G0378; J0280; J0456; J0692; J0696; J1160; J1644; J1940; J2785; J2930; J3480; J7030; J7626; Q2037

== ENCOUNTER 2019-11-05 08:24 | Emergency (ER) | payer MEDICARE, OTHER ==
[~2019-11-05] VITALS: Ht 162.6 cm; Wt 57.5 kg
[~2019-11-05 08:24] MED LIST changes: +ACET-2119 PO; +APIX2.5T PO; -APIX5TAB3 PO; +ATOR20TA PO; -BARIUM SULFATE 340 ML SUSP.RECON***PROCEDURE AREA ONLY**DONT ENTER PO ONE; -CYCL-1 PO; -DET2T PO; -DIGO125T PO; -HYDR-4383 PO; -LORA10TA7 PO; +MESA800T PO; -OMEP40CA13 PO
[2019-11-05] MEDS ORDERED: normal saline 1000ML IV soln IVB ONE (08:40)
[2019-11-05 09:15] LABS: BASOPHILS # (AUTO) 0.1 X10'3 (0-0.2); BASOPHILS % (AUTO) 0.9 % (0-1); EOSINOPHILS # (AUTO) 0.4 X10'3 (0-0.9); EOSINOPHILS % (AUTO) 6.3 % (0-6); HEMATOCRIT 38.2 % (35.0-45.0); HEMOGLOBIN 12.8 g/dl (12.0-16.0); LYMPHOCYTES # (AUTO) 1.5 X10'3 (1.1-4.8); LYMPHOCYTES % (AUTO) 26.4 % (21-51); MEAN CORPUSCULAR HEMOGLOBIN 29.1 PG (27.0-31.0); MEAN CORPUSCULAR HGB CONC 33.5 g/dL (33.0-36.5); MEAN PLATELET VOLUME 9.2 FL (7.4-10.4); MONOCYTES # (AUTO) 0.8 X10'3 (0-0.9); MONOCYTES % (AUTO) 12.9 % (2-12); NEUTROPHILS # (AUTO) 3.1 X10'3 (1.8-7.7); NEUTROPHILS % (AUTO) 53.5 % (42-75); PLATELET COUNT 175 X10'3 (140-440); RED CELL DISTRIBUTION WIDTH 18.7 % (11.5-14.5); WHITE BLOOD COUNT 5.8 X10'3 (4.5-11.0)
[2019-11-05 09:32] LABS: ALANINE AMINOTRANSFERASE 15 U/L (12-78); ALBUMIN 3.1 G/DL (3.4-5.0); ALBUMIN/GLOBULIN RATIO 0.8 (1.1-1.5); ALKALINE PHOSPHATASE 53 IU/L (46-116); ANION GAP 9 (8-16); ASPARTATE AMINO TRANSFERASE 18 U/L (10-37); BILIRUBIN,TOTAL 0.6 MG/DL (0.1-1.0); BLOOD UREA NITROGEN 16 MG/DL (7-18); CALCIUM 8.2 MG/DL (8.5-10.1); CHLORIDE 102 MMOL/L (99-107); CREATININE 1.07 MG/DL (0.40-0.90); GLUCOSE 109 MG/DL (70-104); POTASSIUM 3.6 MMOL/L (3.5-5.1); SODIUM 137 MMOL/L (135-145); TOTAL CARBON DIOXIDE 26.5 MMOL/L (24-32); TOTAL PROTEIN 6.8 G/DL (6.4-8.2); eGFR 48 ML/MIN
[2019-11-05 10:04] LABS: PLATELET ESTIMATE NORMAL; TOTAL CELLS COUNTED 100
[2019-11-05 10:09] LABS: ACANTHOCYTES 1+; ANISOCYTOSIS 2+
[2019-11-05 10:10] LABS: ELLIPTOCYTES 1+
[2019-11-05 11:45] LABS: CLARITY,URINE SLIGHTLY CLOUDY (Clear); COLOR,URINE YELLOW (Yellow); GLUCOSE, URINE NEGATIVE (Neg); KETONES,URINE NEGATIVE (Neg); LEUKOCYTE ESTERASE ,URINE TRACE (Neg); NITRITES, URINE POSITIVE (Neg); OCCULT BLOOD,URINE NEGATIVE (Neg); PROTEIN,URINE NEGATIVE (Neg); UROBILINOGEN,URINE 0.2 E.U/dL (0.2-1.0)
[2019-11-05 11:46] LABS: UA COLLECTION TYPE OTHER
[2019-11-05 11:51] LABS: BACTERIA,URINE 4+ /HPF (Neg); MUCUS STRANDS NONE SEEN /LPF (Neg); RBC,URINE NONE SEEN /HPF (0-2); SQUAMOUS EPITHELIAL CELL,UR MODERATE /LPF (FEW); WBC CLUMPS,URINE FEW /HPF (NEGATIVE)
--- NOTE | 2019-11-05 12:40 | NUR ---
PT REPORTS, "STILL NOT ABLE TO HAVE A BM".
[2019-11-05 13:56] VITALS: BP 114/62
--- NOTE | 2019-11-09 08:36 | NUR ---
called pt. at home. she wants her rx called into [facility].
--- NOTE | 2019-11-09 09:37 | NUR ---
called in bactrim ds 1 po bid x 10 days for #20 to [facility]
== END 2019-11-05 13:57 | disposition home or self-care (01) ==
LOC: ER 08:25
DX: N39.0 Urinary tract infection, site not specified (principal); R19.7 Diarrhea, unspecified; I48.91 Unspecified atrial fibrillation; I50.9 Heart failure, unspecified; J44.9 Chronic obstructive pulmonary disease, unspecified; Z87.01 Personal history of pneumonia (recurrent); Z79.899 Other long term (current) drug therapy
CPT/HCPCS: 36415; 71045; 80053; 81001; 85025; 87077; 87088; 87186; 96360; 96361; 99284; J7030

== ENCOUNTER 2019-11-13 16:20 | Emergency (ER) | payer MEDICARE, OTHER ==
[~2019-11-13] VITALS: Ht 165.1 cm; Wt 60.0 kg
[2019-11-13] MEDS ORDERED: LORazepam 2 mg/ml vial IV ONE (17:50)
[2019-11-13] MEDS ORDERED: normal saline 1000ML IV soln IVB ONE ×2 (17:50→21:20)
[2019-11-13 18:42] LABS: BASOPHILS # (AUTO) 0.1 X10'3 (0-0.2); EOSINOPHILS # (AUTO) 0.5 X10'3 (0-0.9); EOSINOPHILS % (AUTO) 5.1 % (0-6); HEMATOCRIT 37.6 % (35.0-45.0); HEMOGLOBIN 12.6 g/dl (12.0-16.0); LYMPHOCYTES # (AUTO) 2.4 X10'3 (1.1-4.8); LYMPHOCYTES % (AUTO) 22.7 % (21-51); MEAN CORPUSCULAR HEMOGLOBIN 29.5 PG (27.0-31.0); MEAN CORPUSCULAR HGB CONC 33.6 g/dL (33.0-36.5); MEAN CORPUSCULAR VOLUME 87.9 FL (78-98); MEAN PLATELET VOLUME 9.3 FL (7.4-10.4); MONOCYTES # (AUTO) 1.3 X10'3 (0-0.9); MONOCYTES % (AUTO) 12.3 % (2-12); NEUTROPHILS # (AUTO) 6.2 X10'3 (1.8-7.7); NEUTROPHILS % (AUTO) 58.9 % (42-75); PLATELET COUNT 228 X10'3 (140-440); RED BLOOD COUNT 4.28 X10'6 (4.20-5.60); RED CELL DISTRIBUTION WIDTH 18.9 % (11.5-14.5); WHITE BLOOD COUNT 10.5 X10'3 (4.5-11.0)
[2019-11-13 19:02] LABS: PLATELET ESTIMATE NORMAL; POLYCHROMASIA FEW
[2019-11-13 19:03] LABS: ANISOCYTOSIS 2+; ELLIPTOCYTES 1+; POIKILOCYTOSIS 2+
[2019-11-13 19:04] LABS: ACANTHOCYTES FEW
[2019-11-13 19:05] LABS: BURR CELLS 2+; SCHISTOCYTES FEW; TEAR DROP CELLS FEW
[2019-11-13 19:08] LABS: ALANINE AMINOTRANSFERASE 14 U/L (12-78); ALBUMIN 3.3 G/DL (3.4-5.0); ALBUMIN/GLOBULIN RATIO 0.9 (1.1-1.5); ALKALINE PHOSPHATASE 56 IU/L (46-116); ANION GAP 11 (8-16); ASPARTATE AMINO TRANSFERASE 18 U/L (10-37); BILIRUBIN,TOTAL 0.6 MG/DL (0.1-1.0); BLOOD UREA NITROGEN 16 MG/DL (7-18); BUN/CREATININE RATIO 13.6 (6.6-38.0); CALCIUM 8.5 MG/DL (8.5-10.1); CHLORIDE 101 MMOL/L (99-107); CREATININE 1.18 MG/DL (0.40-0.90); GLUCOSE 89 MG/DL (70-104); LIPASE 68 U/L (73-393); POTASSIUM 3.9 MMOL/L (3.5-5.1); SODIUM 133 MMOL/L (135-145); TOTAL PROTEIN 6.9 G/DL (6.4-8.2); eGFR 43 ML/MIN
[2019-11-13 20:32] LABS: CLARITY,URINE CLEAR (Clear); COLOR,URINE YELLOW (Yellow); GLUCOSE, URINE NEGATIVE (Neg); KETONES,URINE NEGATIVE (Neg); LEUKOCYTE ESTERASE ,URINE NEGATIVE (Neg); NITRITES, URINE NEGATIVE (Neg); OCCULT BLOOD,URINE NEGATIVE (Neg); PROTEIN,URINE NEGATIVE (Neg); UA COLLECTION TYPE STRAIGHT CATH; UROBILINOGEN,URINE 0.2 E.U/dL (0.2-1.0)
--- NOTE | 2019-11-13 21:21 | NUR ---
NOTIFIED LAWANDA MEDINA, OF VITAL SIGNS HR 139 BP 109/51
[2019-11-13] MEDS ORDERED: diltiazem 5mg/ml 5ml inj. IV ONE (21:40)
[2019-11-13] MEDS ORDERED: DILT120T PO (23:43)
[2019-11-14 00:21] VITALS: BP 116/90
[2019-11-14 13:13] LABS: C DIFF ANTIGEN NEGATIVE (NEGATIVE); C DIFF SPECIMEN=DIARRHEA? ACCEPTABLE; C DIFFICILE TOXINS A&B NEGATIVE (Neg)
== END 2019-11-14 00:24 | disposition home or self-care (01) ==
LOC: ER 16:20
DX: R19.7 Diarrhea, unspecified (principal); I48.91 Unspecified atrial fibrillation; I50.9 Heart failure, unspecified; J44.9 Chronic obstructive pulmonary disease, unspecified; Z79.899 Other long term (current) drug therapy
CPT/HCPCS: 36415; 80053; 81003; 83605; 83690; 84145; 85025; 87040; 87045; 87046; 87324; 87449; 93005; 96361; 96374; 96375; 99284; J2060; J7030; J3490

== ENCOUNTER 2019-11-22 17:25 | Emergency (ER) | payer MEDICARE, OTHER ==
[~2019-11-22] VITALS: Ht 162.6 cm; Wt 56.8 kg
[~2019-11-22 17:25] MED LIST changes: +DILT120T PO
[2019-11-22] MEDS ORDERED: ondansetron/PF 4mg/2ml inj IV ONE (19:20)
[2019-11-22] MEDS ORDERED: normal saline 1000ML IV soln IVB ONE (19:25)
[2019-11-22 19:57] LABS: BASOPHILS # (AUTO) 0.1 X10'3 (0-0.2); BASOPHILS % (AUTO) 0.7 % (0-1); EOSINOPHILS % (AUTO) 0.2 % (0-6); HEMATOCRIT 36.9 % (35.0-45.0); HEMOGLOBIN 12.2 g/dl (12.0-16.0); LYMPHOCYTES # (AUTO) 2.1 X10'3 (1.1-4.8); LYMPHOCYTES % (AUTO) 18.7 % (21-51); MEAN CORPUSCULAR HEMOGLOBIN 29.1 PG (27.0-31.0); MEAN PLATELET VOLUME 8.3 FL (7.4-10.4); MONOCYTES # (AUTO) 0.3 X10'3 (0-0.9); MONOCYTES % (AUTO) 2.9 % (2-12); NEUTROPHILS # (AUTO) 8.7 X10'3 (1.8-7.7); NEUTROPHILS % (AUTO) 77.5 % (42-75); PLATELET COUNT 259 X10'3 (140-440); RED BLOOD COUNT 4.19 X10'6 (4.20-5.60); RED CELL DISTRIBUTION WIDTH 20.2 % (11.5-14.5); WHITE BLOOD COUNT 11.2 X10'3 (4.5-11.0)
[2019-11-22 20:12] LABS: ALANINE AMINOTRANSFERASE 36 U/L (12-78); ALBUMIN 3.4 G/DL (3.4-5.0); ALKALINE PHOSPHATASE 47 IU/L (46-116); ANION GAP 12 (8-16); ASPARTATE AMINO TRANSFERASE 24 U/L (10-37); BILIRUBIN,TOTAL 0.4 MG/DL (0.1-1.0); BLOOD UREA NITROGEN 26 MG/DL (7-18); BUN/CREATININE RATIO 23.2 (6.6-38.0); CALCIUM 8.6 MG/DL (8.5-10.1); CHLORIDE 104 MMOL/L (99-107); CREATININE 1.12 MG/DL (0.40-0.90); GLUCOSE 113 MG/DL (70-104); POTASSIUM 4.6 MMOL/L (3.5-5.1); SODIUM 134 MMOL/L (135-145); TOTAL CARBON DIOXIDE 18.1 MMOL/L (24-32); TOTAL PROTEIN 6.7 G/DL (6.4-8.2); eGFR 46 ML/MIN
[2019-11-22 20:19] LABS: LIPASE 176 U/L (73-393)
[2019-11-22 20:25] LABS: CLARITY,URINE CLEAR (Clear); COLOR,URINE YELLOW (Yellow); GLUCOSE, URINE NEGATIVE (Neg); KETONES,URINE NEGATIVE (Neg); LEUKOCYTE ESTERASE ,URINE NEGATIVE (Neg); NITRITES, URINE NEGATIVE (Neg); OCCULT BLOOD,URINE NEGATIVE (Neg); PROTEIN,URINE NEGATIVE (Neg); UROBILINOGEN,URINE 0.2 E.U/dL (0.2-1.0)
[2019-11-22 20:31] LABS: UA COLLECTION TYPE STRAIGHT CATH
[2019-11-22 21:03] VITALS: BP 116/70
[2019-11-22 22:41] LABS: ANISOCYTOSIS 3+; BURR CELLS 3+; ELLIPTOCYTES 1+; PLATELET ESTIMATE NORMAL; POIKILOCYTOSIS 2+; TOTAL CELLS COUNTED 100
[2019-11-22 22:42] LABS: POLYCHROMASIA FEW
== END 2019-11-22 21:05 | disposition home or self-care (01) ==
LOC: ER 17:26
DX: R19.7 Diarrhea, unspecified (principal); I48.91 Unspecified atrial fibrillation; I50.9 Heart failure, unspecified; J44.9 Chronic obstructive pulmonary disease, unspecified; Z79.899 Other long term (current) drug therapy
CPT/HCPCS: 36415; 71045; 80053; 81003; 83690; 83880; 84484; 85025; 93005; 96374; 99284; J2405; J7040